=== PATIENT | male | born 1955 | race Caucasian/White ===

== ENCOUNTER → 2016-11-19 | Outpatient (CLI) | payer OTHER | END | disposition home or self-care (01) | LOC: CDC 11:28 | DX: Z01.810 Encounter for preprocedural cardiovascular examination (principal); R94.31 Abnormal electrocardiogram [ECG] [EKG] | CPT/HCPCS: 93000 ==

== ENCOUNTER 2017-02-04 09:25 | Inpatient (IN) | payer OTHER ==
[~2017-02-04] VITALS: Ht 182.9 cm; Wt 104.6 kg
[2017-02-04 10:10] LABS: EOSINOPHIL (%) 0.2 % (0-5); HEMATOCRIT 42.7 % (38.0-50.0); IMMATURE GRANULOCYTE (%) 0.5 % (0.0-0.7); IMMATURE GRANULOCYTE COUNT 0.1 K/uL; INSTRUMENT ABS NEUTROPHIL CT 9.2 K/uL; LYMPHOCYTE COUNT 0.8 K/uL (1.0-2.8); MCH 28.8 PG (29.0-34.0); MCHC 32.6 G/DL (30.0-36.0); MCV 88.6 FL (86-99); MEAN PLAT.VOLUME 9.7 uM^3 (9.0-12.4); MONOCYTE (%) 6.6 % (3-12); MONOCYTE COUNT 0.7 K/uL (0-0.8); NEUTROPHIL (%) 85.5 % (45-76); NEUTROPHIL COUNT 9.2 K/uL (1.8-6.4); PLATELET COUNT 151 K/uL (156-360); RBC DIS.WIDTH-SD 52.6 % (39-53); RED BLOOD COUNT 4.82 M/uL (4.00-5.50); WHITE BLOOD COUNT 10.7 K/uL (4.1-10.2)
[2017-02-04 10:22] LABS: CHLORIDE 98 mEq/L (99-109); POTASSIUM 4.5 mEq/L (3.7-5.4); SODIUM 134 mEq/L (136-147)
[2017-02-04 10:24] LABS: GLUCOSE 170 mg/dL (70-99)
[2017-02-04 10:25] LABS: ANION GAP 13 MEQ/L (2-14)
[2017-02-04 10:28] LABS: GFR ESTIMATE (CALCULATED) > 59 mL/min/ (58.99-99999)
[2017-02-04 10:29] LABS: UREA NITROGEN (BUN) 13 mg/dL (9-23)
[2017-02-04] MEDS ORDERED: TRAMADOL HCL50 MG PO (13:10)
[2017-02-04] MEDS ORDERED: ATORVASTATIN CA80 MG PO (13:11)
[2017-02-04] MEDS ORDERED: LOPRESSOR25 MG PO (13:11)
[2017-02-04] MEDS ORDERED: CLOPIDOGREL75 MG PO (13:12)
[2017-02-04] MEDS ORDERED: ALEVE PM CAPLE1 EACH PO (13:13)
[2017-02-04 15:17] VITALS: BP 151/72
== END 2017-02-04 19:29 | disposition short-term general hospital (02) | DRG 872 ==
LOC: EME 09:25 → EDOF 12:49 → ENRESERV 12:51 → 2EAST 14:56
DX: A41.9 Sepsis, unspecified organism (principal); T82.868A Thrombosis due to vascular prosthetic devices, implants and grafts, initial encounter; L03.115 Cellulitis of right lower limb; L97.919 Non-pressure chronic ulcer of unspecified part of right lower leg with unspecified severity; I10 Essential (primary) hypertension; E87.2 Acidosis; F17.200 Nicotine dependence, unspecified, uncomplicated; J44.9 Chronic obstructive pulmonary disease, unspecified; I73.9 Peripheral vascular disease, unspecified; Z86.711 Personal history of pulmonary embolism; Z95.5 Presence of coronary angioplasty implant and graft; I25.2 Old myocardial infarction
CPT/HCPCS: 71010; 80048; 81003; 83605; 85025; 85651; 85730; 86140; 87040; 87070; 87075; 87076; 87077; 87147; 87185; 87186; 87205; 87801; 93005; 93926; 94760; 99202; 99281; 99285; J0692; J1170; J1885; J3010; J3370

== ENCOUNTER 2017-03-28 10:40 | Emergency (ER) | payer OTHER ==
[~2017-03-28] VITALS: Ht 182.9 cm; Wt 90.4 kg
[~2017-03-28 10:40] MED LIST: ALEVE PM CAPLE1 EACH PO; ATORVASTATIN CA80 MG PO; CLOPIDOGREL75 MG PO; LOPRESSOR25 MG PO; TRAMADOL HCL50 MG PO
[2017-03-28 12:31] LABS: HEMATOCRIT 42.4 % (38.0-50.0); HEMOGLOBIN 14.1 G/DL (12.5-16.6); MCHC 33.3 G/DL (30.0-36.0); MCV 87.1 FL (86-99); PLATELET COUNT 221 K/uL (156-360); RBC DIS.WIDTH-CV 14.9 % (11.8-14.6); RBC DIS.WIDTH-SD 47.8 % (39-53); RED BLOOD COUNT 4.87 M/uL (4.00-5.50); WHITE BLOOD COUNT 10.7 K/uL (4.1-10.2)
[2017-03-28 12:38] LABS: ALBUMIN 3.9 g/dL (3.2-4.8); CHLORIDE 104 mEq/L (99-109); POTASSIUM 3.7 mEq/L (3.7-5.4); SODIUM 140 mEq/L (136-147)
[2017-03-28 12:41] LABS: GLUCOSE 101 mg/dL (70-99)
[2017-03-28 12:43] LABS: TOTAL BILIRUBIN 0.9 mg/dL (0.0-1.0)
[2017-03-28 12:44] LABS: ALKALINE PHOSPHATASE 123 IU/L (3-129); CREATININE 0.6 mg/dL (0.6-1.3); GFR ESTIMATE (CALCULATED) > 59 mL/min/ (58.99-99999)
[2017-03-28 12:45] LABS: UREA NITROGEN (BUN) 11 mg/dL (9-23)
[2017-03-28 12:46] LABS: AST (GOT) 19 IU/L (2-34)
[2017-03-28 12:47] LABS: ALT (GPT) 21 IU/L (3-49)
[2017-03-28 13:17] LABS: LIPASE 19 U/L (1.0-51.0)
[2017-03-28 14:37] LABS: APPEARANCE SL.HAZY ((CLEAR)); BILIRUBIN NEGATIVE; BLOOD NEGATIVE; COLOR YELLOW ((YELLOW)); GLUCOSE (STRIP) NEGATIVE; KETONES NEGATIVE; LEUKOCYTES NEGATIVE; NITRITE NEGATIVE; PROTEIN (STRIP) 30; SPECIFIC GRAVITY 1.011 (1.000-1.030); UROBILINOGEN 0.2 MG/DL (0.2-1.0)
[2017-03-28 14:42] LABS: BACTERIA 2+ /HPF; EPITHELIAL CELLS RARE /HPF; MUCUS TRACE /LPF; RED BLOOD CELLS 0-5 /HPF (0-5); UCUL ADDED? YES; WHITE BLOOD CELLS 0-5 /HPF (0-5)
[2017-03-28] MEDS ORDERED: LO-DOSE ASPIRIN81 M2 PO (18:29)
[2017-03-28] MEDS ORDERED: MULTIVITAMIN1 EAC2 PO (18:30)
[2017-03-28 21:58] VITALS: BP 166/85
== END 2017-03-28 21:59 | disposition short-term general hospital (02) ==
LOC: EME 10:40
PROVIDERS: Emergency Medicine
DX: I61.9 Nontraumatic intracerebral hemorrhage, unspecified (principal); I16.0 Hypertensive urgency; I10 Essential (primary) hypertension; I25.2 Old myocardial infarction; Z95.5 Presence of coronary angioplasty implant and graft; Z79.02 Long term (current) use of antithrombotics/antiplatelets; F17.200 Nicotine dependence, unspecified, uncomplicated; J44.9 Chronic obstructive pulmonary disease, unspecified; Z89.611 Acquired absence of right leg above knee
CPT/HCPCS: 70450; 74177; 80053; 81003; 83605; 83690; 85027; 87040; 87077; 87086; 87186; 93005; 99281; 99285; J0360; J2405; J3010; J7030